=== PATIENT | female | born 1965 | race Hispanic/Latino ===

== ENCOUNTER 2016-10-17 07:32 | Day surgery (SDC) | payer BC ==
[~2016-10-17 07:32] MED LIST: ANCEF/STERILE WATER 2 GM/20 ML IV NR
--- NOTE | 2016-10-17 09:49 | Anesthesia Day of Surgery ---
Anesthesia Day of Surgery - Day of Surgery Patient Examined: Yes Patient H&P Reviewed: Yes Patient is NPO: Yes
--- NOTE | 2016-10-17 09:49 | Anesthesia Consultation ---
Anesthesia Consult and Med Hx Date of service: 10/17/16 - Airway Anesthetic Teeth Evaluation: Good ROM Head & Neck: Adequate Mental/Hyoid Distance: Adequate Mallampati Class: Class II Intubation Access Assessment: Probably Good - Pulmonary Exam CTA: Yes - Cardiac Exam Cardiac Exam: RRR - Pre-Operative Health Status ASA Pre-Surgery Classification: ASA3 Proposed Anesthetic Plan: General - Pulmonary Hx Smoking: No Hx Asthma: No COPD: No Hx Sleep Apnea: Yes (+CPAP) - Cardiovascular System Hx Hypertension: Yes (FOR ABOUT 5 YEARS) Hx Heart Attack/AMI: No Hx Heart Murmur: No - Central Nervous System Hx Psychiatric Problems: No - Gastrointestinal Hx Gastroesophageal Reflux Disease: Yes - Endocrine Hx Thyroid Disease: Yes Hx Hypothyroidism: Yes Hx Hyperthyroidism: No - Hematic Hx Anemia: Yes Hx Sickle Cell Disease: No - Other Systems Hx Alcohol Use: No Hx Substance Use: No Hx Cancer: No Hx Obesity: Yes (MORBID, BMI > 40) - Additional Comments Anesthesia Medical History Comments: "WOKE UP DURING SURGERY"
[2016-10-17] MEDS ORDERED: VERSED IV NR (10:00)
[2016-10-17] MEDS ORDERED: NACL BACTERIOSTATIC INFILTRATI ONE (10:27)
[2016-10-17] MEDS ORDERED: NACL 0.9% 1000 ML 1,000 ML IV SCH (10:30)
[2016-10-17] MEDS ORDERED: DILAUDID IV PRN (10:30)
[2016-10-17] MEDS ORDERED: ZOFRAN IV PRN ×2 (10:30→14:36)
[2016-10-17] MEDS ORDERED: PEPCID PO NR (11:00)
[2016-10-17] MEDS ORDERED: DIPRIVAN 10 MG/ML IV ONE (11:00)
[2016-10-17] MEDS ORDERED: DILAUDID ONE (11:00)
[2016-10-17] MEDS ORDERED: XYLOCAINE MPF 2% ONE (11:03)
[2016-10-17] MEDS ORDERED: XYLOCAINE 1%/ EPI 1:100,000 INFILTRATI ONE ×2 (12:02→13:24)
[2016-10-17] MEDS ORDERED: MARCAINE 0.25% INFILTRATI ONE ×3 (12:02→13:50)
[2016-10-17] MEDS ORDERED: ZOFRAN ONE (12:55)
[2016-10-17] MEDS ORDERED: DECADRON ONE (12:55)
[2016-10-17] MEDS ORDERED: NACL 0.9% IR ONE (13:24)
--- NOTE | 2016-10-17 13:59 | Short Stay Summary ---
Short Stay Documentation Date of service: 10/17/16 - Allergies and Medications Current Medications: Allergies Sulfa (Sulfonamide Antibiotics) Allergy (Verified 10/11/16 14:32) BROWNLEE SKIN, ITCHING Home Medications Medication Instructions Recorded Confirmed Last Taken Type Aspirin [Aspirin BABY CHEW TAB] 81 mg PO QDAY 10/11/16 10/11/16 10/08/16 History Calcium Carbonate/Vitamin D3 1 each PO QDAY 10/11/16 10/17/16 10/16/16 History [Calcium 600-Vit D3 200 Tablet] Levothyroxine Sodium [Unithroid] 75 mcg PO QDAY 10/11/16 10/17/16 10/16/16 History Olmesartan/Hydrochlorothiazide 1 tab PO QDAY 10/11/16 10/11/16 10/17/16 05:20 History [Benicar HCT 40-12.5 mg] Omeprazole Magnesium [PriLOSEC Otc] 20 mg PO QDAY 10/11/16 10/11/16 10/17/16 05: 20 History Rosuvastatin (Nf) [Crestor] 10 mg PO QDAY 10/11/16 10/17/16 10/17/16 00:00 History amLODIPine [Norvasc] 10 mg PO DAILY 10/11/16 10/11/16 10/17/16 05:20 History Active Medications Cefazolin Sodium (Ancef/Sterile Water 2 Gm/20 Ml) 2 gm IV PREOP NR Stop: 10/17/16 23:00 Famotidine (Pepcid) 20 mg PO PREOP NR Stop: 10/17/16 15:00 Last Admin: 10/17/16 10:30 Dose: 20 mg Hydromorphone HCl (Dilaudid) 0.5 mg IV Q10MIN PRN PRN Reason: Pain , Severe (7-10) Stop: 10/17/16 14:30 Sodium Chloride (Nacl 0.9% 1000 Ml) 1,000 mls @ 75 mls/hr IV DIRECT JASON Last Admin: 10/17/16 10:41 Dose: 75 mls/hr Midazolam HCl (Versed) 2 mg IV PREOP NR Stop: 10/17/16 23:59 Last Admin: 10/17/16 10:43 Dose: 2 mg Ondansetron HCl (Zofran) 4 mg IV ONCE PRN PRN Reason: Nausea And Vomiting Stop: 10/17/16 16:00 Short Stay Discharge Plan Activity: advance as tolerated Weight Bearing Status: Full Weight Bearing Diet: regular Wound: per your surgeon's advice Special Instructions: physical therapy (as instructed. to be started tomorrow) Durable Medical Equipment Needed Upon Discharge: Cane Additional Instructions: follow DC instruction sheet, follow up in 10 days,. ice pacs knee PT starting tomorrow
[2016-10-17] MEDS ORDERED: PERCOCET 5/325 PO PRN (14:36)
[2016-10-17] MEDS: DILAUDID IV PRN ×2 (14:53→15:01)
[2016-10-17] MEDS ORDERED: PERCOCET 5/325 ONE (14:57)
[2016-10-17 16:42] VITALS: BP 100/66
[2016-10-17] MEDS ORDERED: PERCOCET 5/325 PO ONE (17:00)
--- NOTE | 2016-10-17 20:21 | Operative Report ---
SURGEON: Richard Mccain M.D. CLERICAL AND OFFICE SUPPORT WORKERS: Gifty Lawrence, operative tech. PREOPERATIVE DIAGNOSES: Medial meniscus tear, posterior horn with osteoarthritis. POSTOPERATIVE DIAGNOSES: 1. Severe osteoarthritis of the right knee joint, tricompartmental. 2. Posterior horn medial meniscus tear, complex. 3. Synovial hypertrophy and synovial proliferation, right knee joint. COMPLICATIONS: None. BLOOD LOSS: Minimal. BRIEF HISTORY: The patient is a 51-year-old lady, had failed conservative treatment, opted to go for surgical intervention. Risk and benefit discussed, informed consent obtained. The patient opted for arthroscopy procedure, no guarantees expressed. DETAILS OF THE OPERATIVE REPORT: The patient was taken to the operating room. After smooth general anesthesia, all bony prominences carefully padded, placed supine on the operating table. Thigh tourniquet placed. Right knee, right lower extremity prepped and draped in sterile fashion. The patient given 2 g Ancef, half an hour before the procedure. Leg elevated, tourniquet inflated to 350 mmHg. Portal sites infiltrated with 1% lidocaine with epinephrine, high lateral portal was created. Arthroscope introduced. Diagnostic arthroscopy was performed. Findings noted below. Under direct visualization, medial portal was created. Using synovial resector and biters, partial medial meniscectomy, posterior horn complex tear was addressed and a partial medial meniscectomy was performed. Significant arthritis on tricompartment area was noticed and severe on the medial and patellofemoral compartment. There was significant synovial hypertrophy and proliferation. Synovial resector was used to perform necessary partial synovectomy. Necessary debridement of the arthritics and loose cartilage pieces on the patellofemoral and retropatellar region and the medial compartment was performed. ACL intact, PCL intact. Stable meniscal rim was achieved. The patient tolerated the procedure very well. Fluid was evacuated and portal sites were closed with 3-0 nylon interrupted sutures, simple stitches and infiltrated with 0.25% Marcaine plain. Dressing was done with Xeroform, 4 x 4, ABD, cast padding, Scooter wrap. The patient tolerated the procedure well, shifted to recovery room in stable condition. Sponge and needle count was correct. Tourniquet deflated. ARTHROSCOPY FINDINGS: Lateral gutter; floating loose cartilage pieces and old tissue. Retropatellar region; severe grade 4 arthritic changes about 60% to 70% with significant fibrillation present in 20% of the area. Trochlea; grade 4 osteoarthritic changes about 80%. Medial femoral condyle; grade 4 osteoarthritic changes about 70%, grade 3 about 30%. Medial tibial plateau; grade 4 about 60% and grade 3 about 40%. Posterior horn medial meniscus tear present and the ACL intact, PCL intact. Fat pad normal. Synovium; synovial hypertrophy and synovial proliferation. Lateral compartment; lateral meniscus pristine and lateral femoral condyle, grade 2 changes throughout. Lateral tibial plateau; grade 2+ to grade 3 changes in about 30% to 40%, grade 2, 30% to 40%. Medial gutter within normal limit. Osteophytes around the notch as well, ____. JOB# [id number] DI/SILVIA
== END 2016-10-17 16:57 | disposition home or self-care (01) ==
LOC: OR 07:32
PROVIDERS: ATTEND Orthopaedic Surgery
DX: S83.231A Complex tear of medial meniscus, current injury, right knee, initial encounter (principal); M67.261 Synovial hypertrophy, not elsewhere classified, right lower leg; M17.11 Unilateral primary osteoarthritis, right knee; I10 Essential (primary) hypertension; G47.33 Obstructive sleep apnea (adult) (pediatric); K21.9 Gastro-esophageal reflux disease without esophagitis; E03.9 Hypothyroidism, unspecified; D64.9 Anemia, unspecified; E66.01 Morbid (severe) obesity due to excess calories; Z68.41 Body mass index [BMI] 40.0-44.9, adult; Z88.2 Allergy status to sulfonamides; Z79.82 Long term (current) use of aspirin; Z79.899 Other long term (current) drug therapy; X58.XXXA Exposure to other specified factors, initial encounter
CPT/HCPCS: 29881; A4217; J0690; J1100; J1170; J2250; J2405; J2704; J7030